=== PATIENT | female | born 1985 | race Caucasian/White ===

== ENCOUNTER 2016-11-09 15:49 | Emergency (ER) | payer OTHER ==
[~2016-11-09 15:49] MED LIST: ABILIFY10 MG PO; FLUOXETINE HCL40 MG PO; HYDROXYZINE HCL50 MG PO; NEXIUM40 MG PO; REQUIP1 MG PO
[2016-11-09 16:37] LABS: BILIRUBIN 2+ mg/dL (NEGATIVE); BLOOD NEGATIVE Ery/uL (NEGATIVE); CLARITY CLEAR (CLEAR); COLOR YELLOW (YELLOW); GLUCOSE (U) 3+ mg/dL (NORMAL); KETONE (U) 3+ (LARGE) mg/dL (NEGATIVE); LEUKOCYTES NEGATIVE Leu/uL (NEGATIVE); NITRITE NEGATIVE (NEGATIVE); PROTEIN NEGATIVE (NEGATIVE); UROBILINOGEN 0.2 mg/dL (0.2-1.0); pH 5.5 (5.0-9.0)
[2016-11-09 16:45] LABS: BACTERIA 1+; URINARY RBC RARE
[2016-11-09 16:53] LABS: ALBUMIN 4.4 g/dL (3.5-5.0); BILIRUBIN - TOTAL 0.3 mg/dL (0.1-1.0); CREATININE 1.3 mg/dL (0.5-1.0); GLOBULIN (CALCULATION) 2.3 g/dL (2.2-4.2); POTASSIUM 4.2 mmol/L (3.5-5.1); TOTAL PROTEIN 6.7 g/dL (6.4-8.3)
[2016-11-09 16:54] LABS: BASOPHIL 0.5 % (0-2); EOSINOPHIL 0.5 % (0-5); HCT 34.3 % (37.0-47.0); HGB 12.5 g/dl (12.5-16.0); LYMPHOCYTE 22.9 % (15-48); MCH 30.3 pg (25.0-31.0); MCHC 36.4 g/dL (32.0-36.0); MCV 83.3 fL (78.0-100.0); MONOCYTE 8.6 % (0-12); MPV 10.5 fL (6.0-9.5); NEUTROPHIL 67.5 % (41-80); PLT 282 K/uL (150-400); RBC 4.12 M/uL (4.20-5.40); RDW 12.9 % (11.5-14.0); WBC 5.8 K/uL (4.0-10.5)
== END 2016-11-09 18:24 | disposition home or self-care (01) ==
LOC: FER 15:49
PROVIDERS: Emergency Medicine
DX: E10.65 Type 1 diabetes mellitus with hyperglycemia (principal)
CPT/HCPCS: 36415; 80053; 81001; 82009; 85025

== ENCOUNTER 2020-10-10 12:32 | Emergency (ER) | payer OTHER ==
[~2020-10-10 12:32] MED LIST changes: +ABILIFY15 MG PO; +BASAGLAR K100 UNIT/1 SC; +CLEOCIN300 MG PO; +CYMBALTA 30MG C30 MG PO; +FEOSOL325 MG PO; +FLEXERIL5 MG PO; +HUMALOG 75100 UNIT/M SC; +HUMULIN R100 UNIT/2 SC; +MEDROL 4MG DOSEP4 MG PO; +NAPROXEN500 MG PO; +NEURONTIN400 MG PO; +NORVASC5 MG PO; +TOPROL XL 25MG25 MG PO; +ZOFRAN4 MG PO; +ZOFRAN4 MG SL; +ZPAK PO
[2020-10-10 13:56] LABS: BASOPHIL 0.9 % (0-2); HCT 24.7 % (37.0-47.0); HGB 7.8 g/dl (12.5-16.0); MCH 23.4 pg (25.0-31.0); MCHC 31.6 g/dL (32.0-36.0); MONOCYTE 4.7 % (0-12); MPV 10.2 fL (6.0-9.5); NEUTROPHIL 74.2 % (41-80); NRBC 0; PLT 238 K/uL (150-400); RBC 3.34 M/uL (4.20-5.40); RDW 14.8 % (11.5-14.0); WBC 5.8 K/uL (4.0-10.5)
[2020-10-10 14:00] LABS: BILIRUBIN NEGATIVE (NEGATIVE); BLOOD 2+ Ery/uL (NEGATIVE); CLARITY HAZY (CLEAR); COLOR YELLOW (YELLOW); GLUCOSE (U) 3+ mg/dL (NORMAL); LEUKOCYTES NEGATIVE Leu/uL (NEGATIVE); NITRITE NEGATIVE (NEGATIVE); PROTEIN 2+ mg/dL (NEGATIVE); UROBILINOGEN 0.2 mg/dL (0.2-1.0)
[2020-10-10 14:28] LABS: BACTERIA TRACE
[2020-10-10 14:41] LABS: CORONAVIRUS 2019 SARS-COV-2 NEGATIVE (NEGATIVE); INFLUENZA A NAA NEGATIVE (NEGATIVE)
[2020-10-10 14:42] LABS: ALBUMIN 2.4 g/dL (3.4-5.0); BILIRUBIN - TOTAL 0.2 mg/dL (0.2-1.0); BUN/CREAT RATIO (CALC) 27.4 RATIO; CREATININE 0.95 mg/dL (0.51-0.95); GLOBULIN (CALCULATION) 3.8 g/dL; TOTAL PROTEIN 6.2 g/dL (6.4-8.2)
[2020-10-10 14:52] LABS: LACTIC ACID 1.3 mmol/L (0.4-1.9)
[2020-10-10] MEDS ORDERED: BASAGLAR K100 UNIT/1 SC (17:24)
[2020-10-12 00:06] LABS: CHLAMYDIA TRACHOMATIS, NAA Negative (Negative); NEISSERIA GONORRHOEAE, NAA Negative (Negative)
== END 2020-10-10 17:39 | disposition home or self-care (01) ==
LOC: FER 12:32
PROVIDERS: Nurse Practitioner Family
DX: E11.65 Type 2 diabetes mellitus with hyperglycemia (principal); A64 Unspecified sexually transmitted disease; R06.02 Shortness of breath; R42 Dizziness and giddiness; R20.2 Paresthesia of skin; I10 Essential (primary) hypertension; Z76.0 Encounter for issue of repeat prescription; Z79.4 Long term (current) use of insulin; Z79.899 Other long term (current) drug therapy; Z20.822 Contact with and (suspected) exposure to COVID-19
CPT/HCPCS: 36415; 36600; 71275; 80053; 81001; 82728; 82803; 83036; 83605; 84145; 84484; 85025; 85379; 87088; 87491; 87591; 93005; 96372; J0696; J2405; J7030; Q9967; U0002

== ENCOUNTER 2020-11-19 09:35 | Emergency (ER) | payer OTHER ==
[2020-11-19 10:14] LABS: BASOPHIL 0.7 % (0-2); EOSINOPHIL 2.8 % (0-5); HCT 24.7 % (37.0-47.0); HGB 7.5 g/dl (12.5-16.0); LYMPHOCYTE 14.2 % (15-48); MCH 22.2 pg (25.0-31.0); MCHC 30.4 g/dL (32.0-36.0); MCV 73.1 fL (78.0-100.0); MONOCYTE 4.5 % (0-12); MPV 9.8 fL (6.0-9.5); NEUTROPHIL 77.5 % (41-80); NRBC 0; PLT 289 K/uL (150-400); RBC 3.38 M/uL (4.20-5.40); RDW 16.6 % (11.5-14.0); WBC 6.9 K/uL (4.0-10.5)
[2020-11-19 10:33] LABS: ALBUMIN 2.4 g/dL (3.4-5.0); BILIRUBIN - TOTAL 0.2 mg/dL (0.2-1.0); BUN/CREAT RATIO (CALC) 23.5 RATIO; CREATININE 1.02 mg/dL (0.51-0.95); GLOBULIN (CALCULATION) 4.2 g/dL; POTASSIUM 4.3 mmol/L (3.5-5.1); TOTAL PROTEIN 6.6 g/dL (6.4-8.2)
== END 2020-11-19 13:17 | disposition home or self-care (01) ==
LOC: FER 09:35
PROVIDERS: Emergency Medicine
DX: E10.649 Type 1 diabetes mellitus with hypoglycemia without coma (principal); D50.9 Iron deficiency anemia, unspecified
CPT/HCPCS: 36415; 80053; 85025

== ENCOUNTER 2020-12-03 12:57 | Emergency (ER) | payer OTHER ==
[2020-12-03 13:33] LABS: BASOPHIL 1.1 % (0-2); HCT 22.8 % (37.0-47.0); HGB 7.4 g/dl (12.5-16.0); LYMPHOCYTE 15.6 % (15-48); MCH 23.1 pg (25.0-31.0); MCHC 32.5 g/dL (32.0-36.0); MONOCYTE 6.8 % (0-12); MPV 9.9 fL (6.0-9.5); NEUTROPHIL 74.2 % (41-80); NRBC 0; PLT 331 K/uL (150-400); RBC 3.21 M/uL (4.20-5.40); RDW 16.9 % (11.5-14.0); WBC 6.6 K/uL (4.0-10.5)
[2020-12-03 13:53] LABS: ALBUMIN 2.6 g/dL (3.4-5.0); BILIRUBIN - TOTAL 0.3 mg/dL (0.2-1.0); BUN/CREAT RATIO (CALC) 20.8 RATIO; CREATININE 1.59 mg/dL (0.51-0.95); GLOBULIN (CALCULATION) 3.6 g/dL; POTASSIUM 5.1 mmol/L (3.5-5.1); TOTAL PROTEIN 6.2 g/dL (6.4-8.2)
== END 2020-12-03 19:29 | disposition home or self-care (01) ==
LOC: FER 12:57
PROVIDERS: Emergency Medicine
DX: I95.1 Orthostatic hypotension (principal); D50.9 Iron deficiency anemia, unspecified; E10.9 Type 1 diabetes mellitus without complications; I10 Essential (primary) hypertension; Z79.899 Other long term (current) drug therapy; Z79.4 Long term (current) use of insulin
CPT/HCPCS: 36415; 36430; 36600; 71045; 80053; 82140; 82803; 85025; 86850; 86900; 86901; 86922; 93005; J7030; J7050; P9016

== ENCOUNTER 2020-12-20 09:29 | Emergency (ER) | payer OTHER ==
[2020-12-20 10:08] LABS: BASOPHIL 1.7 % (0-2); EOSINOPHIL 2.7 % (0-5); HCT 28.4 % (37.0-47.0); HGB 9.4 g/dl (12.5-16.0); LYMPHOCYTE 24.1 % (15-48); MCH 24.7 pg (25.0-31.0); MCHC 33.1 g/dL (32.0-36.0); MCV 74.7 fL (78.0-100.0); MONOCYTE 5.1 % (0-12); MPV 10.3 fL (6.0-9.5); NEUTROPHIL 66.2 % (41-80); NRBC 0; PLT 329 K/uL (150-400); RDW 17.4 % (11.5-14.0); WBC 4.7 K/uL (4.0-10.5)
[2020-12-20 10:19] LABS: ALBUMIN 2.8 g/dL (3.4-5.0); BILIRUBIN - TOTAL 0.3 mg/dL (0.2-1.0); BUN/CREAT RATIO (CALC) 18.7 RATIO; CREATININE 1.39 mg/dL (0.51-0.95); GLOBULIN (CALCULATION) 4.3 g/dL; POTASSIUM 3.8 mmol/L (3.5-5.1); TOTAL PROTEIN 7.1 g/dL (6.4-8.2)
[2020-12-20 15:20] LABS: BILIRUBIN NEGATIVE (NEGATIVE); BLOOD NEGATIVE Ery/uL (NEGATIVE); CLARITY CLEAR (CLEAR); COLOR YELLOW (YELLOW); GLUCOSE (U) 3+ mg/dL (NORMAL); LEUKOCYTES NEGATIVE Leu/uL (NEGATIVE); NITRITE NEGATIVE (NEGATIVE); PROTEIN 2+ mg/dL (NEGATIVE); SPECIFIC GRAVITY >=1.030 (1.001-1.030); UROBILINOGEN 0.2 mg/dL (0.2-1.0); pH 5.5 (5.0-9.0)
[2020-12-20 15:33] LABS: AMORPHOUS URATES CRYSTALS TRACE; BACTERIA TRACE
[2020-12-21] MEDS ORDERED: BUSPIRONE HCL10 MG PO (17:26)
[2020-12-21] MEDS ORDERED: DULOXETINE HCL60 MG PO (17:27)
[2020-12-21] MEDS ORDERED: ELAVIL50 MG PO (21:47)
[2020-12-21] MEDS ORDERED: LATUDA20 MG PO (23:37)
== END 2020-12-20 15:57 | disposition home or self-care (01) ==
LOC: FER 09:29
PROVIDERS: Emergency Medicine
DX: I95.1 Orthostatic hypotension (principal); E11.9 Type 2 diabetes mellitus without complications; Z91.81 History of falling
CPT/HCPCS: 36415; 80053; 81001; 85025; J7030; J7040

== ENCOUNTER 2020-12-21 15:43 | Day surgery (SDCO) | payer OTHER ==
[2020-12-21] MEDS ORDERED: BUSPIRONE HCL10 MG PO (17:26)
[2020-12-21] MEDS ORDERED: DULOXETINE HCL60 MG PO (17:27)
[2020-12-21 17:37] LABS: BUN/CREAT RATIO (CALC) 17.4 RATIO; CREATININE 1.09 mg/dL (0.51-0.95); MAGNESIUM 1.8 mg/dL (1.8-2.4); POTASSIUM 4.4 mmol/L (3.5-5.1)
[2020-12-21 19:32] LABS: BILIRUBIN NEGATIVE (NEGATIVE); BLOOD 2+ Ery/uL (NEGATIVE); COLOR YELLOW (YELLOW); GLUCOSE (U) 3+ mg/dL (NORMAL); LEUKOCYTES NEGATIVE Leu/uL (NEGATIVE); NITRITE NEGATIVE (NEGATIVE); PROTEIN 2+ mg/dL (NEGATIVE); UROBILINOGEN 0.2 mg/dL (0.2-1.0); pH 5.5 (5.0-9.0)
[2020-12-21 19:33] LABS: CLARITY HAZY (CLEAR)
[2020-12-21 19:39] LABS: BACTERIA 4+; HCG (URINE) SCREEN NEGATIVE (NEGATIVE); SQUAMOUS EPITHELIAL CELLS RARE
[2020-12-21] MEDS ORDERED: ELAVIL50 MG PO (21:47)
[2020-12-21] MEDS ORDERED: LATUDA20 MG PO (23:37)
[2020-12-22] MEDS ORDERED: LEVAQUIN500 MG PO (13:56)
[2020-12-22] MEDS ORDERED: BASAGLAR K100 UNIT/1 SC (14:00)
[2020-12-22] MEDS ORDERED: INSULIN LI100 UNIT/2 SC (14:00)
== END 2020-12-22 15:00 | disposition home or self-care (01) ==
LOC: FTCU 15:43
PROVIDERS: ADMIT Internal Medicine
DX: I95.1 Orthostatic hypotension (principal); N39.0 Urinary tract infection, site not specified; E11.40 Type 2 diabetes mellitus with diabetic neuropathy, unspecified; N17.9 Acute kidney failure, unspecified; F41.9 Anxiety disorder, unspecified; F32.9 Major depressive disorder, single episode, unspecified; Z20.822 Contact with and (suspected) exposure to COVID-19; Z79.4 Long term (current) use of insulin
CPT/HCPCS: 36415; 80048; 81001; 82962; 83036; 83735; 84703; 87076; 87088; 87186; G0378; J0696; J7030; U0002

== ENCOUNTER 2021-01-03 15:26 | Emergency (ER) | payer OTHER ==
[~2021-01-03 15:26] MED LIST changes: +BUSPIRONE HCL10 MG PO; +DULOXETINE HCL60 MG PO; +ELAVIL50 MG PO; +INSULIN LI100 UNIT/2 SC; +LATUDA20 MG PO; +LEVAQUIN500 MG PO
[2021-01-03 16:21] LABS: EOSINOPHIL 2.7 % (0-5); HCT 28.3 % (37.0-47.0); HGB 9.8 g/dl (12.5-16.0); LYMPHOCYTE 28.9 % (15-48); MCH 26.1 pg (25.0-31.0); MCHC 34.6 g/dL (32.0-36.0); MCV 75.3 fL (78.0-100.0); MPV 9.7 fL (6.0-9.5); NEUTROPHIL 59.2 % (41-80); NRBC 0; PLT 238 K/uL (150-400); RBC 3.76 M/uL (4.20-5.40); WBC 4.8 K/uL (4.0-10.5)
[2021-01-03 16:35] LABS: ALBUMIN 3.1 g/dL (3.4-5.0); BILIRUBIN - TOTAL 0.3 mg/dL (0.2-1.0); BUN/CREAT RATIO (CALC) 15.2 RATIO; CREATININE 1.65 mg/dL (0.51-0.95); GLOBULIN (CALCULATION) 4.3 g/dL; POTASSIUM 4.3 mmol/L (3.5-5.1); TOTAL PROTEIN 7.4 g/dL (6.4-8.2)
== END 2021-01-03 18:49 | disposition home or self-care (01) ==
LOC: FER 15:26
PROVIDERS: Nurse Practitioner Family
DX: E10.649 Type 1 diabetes mellitus with hypoglycemia without coma (principal); E86.0 Dehydration; I10 Essential (primary) hypertension
CPT/HCPCS: 36415; 80053; 85025; 99283; J7030

== ENCOUNTER 2021-01-10 11:44 | Emergency (ER) | payer OTHER ==
[2021-01-10 13:32] LABS: BASOPHIL 1.1 % (0-2); EOSINOPHIL 3.7 % (0-5); HCT 30.4 % (37.0-47.0); HGB 10.6 g/dl (12.5-16.0); LYMPHOCYTE 25.3 % (15-48); MCH 26.8 pg (25.0-31.0); MCHC 34.9 g/dL (32.0-36.0); MPV 9.8 fL (6.0-9.5); NEUTROPHIL 64.7 % (41-80); NRBC 0; PLT 254 K/uL (150-400); RBC 3.95 M/uL (4.20-5.40); RDW 17.2 % (11.5-14.0); WBC 5.4 K/uL (4.0-10.5)
[2021-01-10 14:03] LABS: ALBUMIN 3.1 g/dL (3.4-5.0); BILIRUBIN - TOTAL 0.4 mg/dL (0.2-1.0); BUN/CREAT RATIO (CALC) 22.3 RATIO; CREATININE 1.12 mg/dL (0.51-0.95); GLOBULIN (CALCULATION) 4.3 g/dL; POTASSIUM 4.8 mmol/L (3.5-5.1); TOTAL PROTEIN 7.4 g/dL (6.4-8.2)
[2021-01-10] MEDS ORDERED: ZOFRAN4 M1 PO (16:53)
== END 2021-01-10 17:17 | disposition home or self-care (01) ==
LOC: FER 11:44
PROVIDERS: Emergency Medicine
DX: R11.2 Nausea with vomiting, unspecified (principal); E10.9 Type 1 diabetes mellitus without complications; I10 Essential (primary) hypertension; Z98.84 Bariatric surgery status
CPT/HCPCS: 36415; 80053; 85025; J1885; J2405; J7030

== ENCOUNTER 2021-01-14 14:34 | Inpatient (IN) | payer OTHER ==
[~2021-01-14 14:34] MED LIST changes: +ZOFRAN4 M1 PO
[2021-01-14 15:40] LABS: EOSINOPHIL 1.6 % (0-5); HCT 27.8 % (37.0-47.0); HGB 9.8 g/dl (12.5-16.0); LYMPHOCYTE 18.8 % (15-48); MCH 27.1 pg (25.0-31.0); MCHC 35.3 g/dL (32.0-36.0); MCV 76.8 fL (78.0-100.0); MONOCYTE 3.8 % (0-12); MPV 10.1 fL (6.0-9.5); NEUTROPHIL 74.5 % (41-80); NRBC 0; PLT 307 K/uL (150-400); RBC 3.62 M/uL (4.20-5.40); RDW 16.1 % (11.5-14.0); WBC 7.3 K/uL (4.0-10.5)
[2021-01-14 16:04] LABS: ALBUMIN 2.7 g/dL (3.4-5.0); BILIRUBIN - TOTAL 0.2 mg/dL (0.2-1.0); BUN/CREAT RATIO (CALC) 18.4 RATIO; CREATININE 1.14 mg/dL (0.51-0.95); GLOBULIN (CALCULATION) 4.3 g/dL; POTASSIUM 4.3 mmol/L (3.5-5.1)
[2021-01-15 04:16] LABS: BILIRUBIN NEGATIVE (NEGATIVE); BLOOD TRACE-INTACT Ery/uL (NEGATIVE); CLARITY CLEAR (CLEAR); COLOR YELLOW (YELLOW); GLUCOSE (U) 1+ mg/dL (NORMAL); LEUKOCYTES NEGATIVE Leu/uL (NEGATIVE); NITRITE NEGATIVE (NEGATIVE); PROTEIN 3+ mg/dL (NEGATIVE); SPECIFIC GRAVITY >=1.030 (1.001-1.030); UROBILINOGEN 0.2 mg/dL (0.2-1.0); pH 5.5 (5.0-9.0)
[2021-01-15 04:24] LABS: BACTERIA 1+; SQUAMOUS EPITHELIAL CELLS >50
[2021-01-15 05:53] LABS: HCT 24.5 % (37.0-47.0); HGB 8.6 g/dl (12.5-16.0); MCH 27.1 pg (25.0-31.0); MCHC 35.1 g/dL (32.0-36.0); MCV 77.3 fL (78.0-100.0); MPV 9.9 fL (6.0-9.5); RBC 3.17 M/uL (4.20-5.40); RDW 16.2 % (11.5-14.0); WBC 5.4 K/uL (4.0-10.5)
[2021-01-15 06:29] LABS: CREATININE 1.11 mg/dL (0.51-0.95); POTASSIUM 4.4 mmol/L (3.5-5.1)
--- NOTE | 2021-01-15 08:40 | NUR ---
BP 148/[address] SERRA, NO NEW ORDERS. PT HAVING HEADACHE, TYLENOL 650MG GIVEN. GLUCOSE THIS AM 202, 4 UNITS INSULIN GIVEN. PT DRINKING [place], EDUCATED ON HIGH SUGAR INTAKE IN [place]. PT NONCOMPLIANT WITH DIET REGULATIONS. DR. SERRA AWARE.
--- NOTE | 2021-01-15 10:51 | NUR ---
ORTHOSTATIC VITAL SIGNS 01/15 1030 LAYING- 205/119 SITTING- 168/107 STANDING- 125/85 DR. SERRA NOTIFIED, AMLODIPINE 2.5 MG PO QDAY ORDERED IN RESPONSE.
[2021-01-15] MEDS ORDERED: KEFLEX250 MG PO (10:57)
[2021-01-15] MEDS ORDERED: ZOFRAN4 M1 PO (10:57)
--- NOTE | 2021-01-15 12:47 | NUR ---
Discharge orders by Dr. Bates. Dr. Bates aware of increased BP on discharge. Pt educated on follow up appointments for PCP and cardiology. Pt educated on new medications of zofran and keflex. PIV removed and pt transported down to front exit via wheelchair to family vehicle. Pt has no concerns at this time and verbalizes understanding.
--- NOTE | 2021-01-15 12:56 | NUR ---
01/15/21 Ms. Almodovar, 1 of her 3 children, and boyfriend live with her grandparents. - There are no discharge planning needs.
[2021-01-15] MEDS ORDERED: NORVASC2.5 MG PO (13:00)
== END 2021-01-15 13:00 | disposition home or self-care (01) | DRG 758 ==
LOC: FER 14:34 → FTCU 16:36
PROVIDERS: Emergency Medicine; ADMIT Hospitalist
DX: A59.00 Urogenital trichomoniasis, unspecified (principal); Z16.23 Resistance to quinolones and fluoroquinolones; E10.9 Type 1 diabetes mellitus without complications; I95.1 Orthostatic hypotension; F32.9 Major depressive disorder, single episode, unspecified; F41.9 Anxiety disorder, unspecified; G47.00 Insomnia, unspecified; E86.0 Dehydration; Z20.822 Contact with and (suspected) exposure to COVID-19; Z90.49 Acquired absence of other specified parts of digestive tract; Z98.51 Tubal ligation status; Z98.84 Bariatric surgery status; Z91.14 Patient's other noncompliance with medication regimen
CPT/HCPCS: 36415; 36600; 80048; 80053; 81001; 82009; 82803; 82962; 83605; 83690; 85025; J0696; J0780; J2405; J7030; U0002

== ENCOUNTER 2021-01-16 20:08 | Emergency (ER) | payer OTHER ==
[~2021-01-16 20:08] MED LIST changes: +KEFLEX250 MG PO; +NORVASC2.5 MG PO
[2021-01-16 21:01] LABS: BASOPHIL 1.5 % (0-2); EOSINOPHIL 3.8 % (0-5); HCT 26.4 % (37.0-47.0); HGB 9.4 g/dl (12.5-16.0); LYMPHOCYTE 19.5 % (15-48); MCH 27.4 pg (25.0-31.0); MCHC 35.6 g/dL (32.0-36.0); MPV 9.7 fL (6.0-9.5); NEUTROPHIL 67.9 % (41-80); NRBC 0; PLT 307 K/uL (150-400); RBC 3.43 M/uL (4.20-5.40); RDW 15.7 % (11.5-14.0)
[2021-01-16 21:12] LABS: INR 0.94 (0.9-1.2); PROTHROMBIN TIME 11.9 SECONDS (11.4-13.6); PTT 26.2 SECONDS (22.2-34.7)
[2021-01-16 21:22] LABS: RETICULOCYTE COUNT 2.8 % (1.0-2.0)
[2021-01-16 21:33] LABS: ALBUMIN 2.2 g/dL (3.4-5.0); ALKALINE PHOSHATASE 144 U/L (46-116); ALT 21 U/L (14-59); AST 16 U/L (15-37); BILIRUBIN - TOTAL 0.2 mg/dL (0.2-1.0); BUN 21 mg/dL (7-18); BUN/CREAT RATIO (CALC) 16.7 RATIO; CHLORIDE 100 mmol/L (98-107); CO2 (BICARBONATE) 26 mmol/L (21-32); CPK 24 U/L (26-192); CREATININE 1.26 mg/dL (0.51-0.95); GLOBULIN (CALCULATION) 3.8 g/dL; GLUCOSE 315 mg/dL (74-106); MAGNESIUM 1.9 mg/dL (1.8-2.4); POTASSIUM 4.7 mmol/L (3.5-5.1)
[2021-01-16 21:45] LABS: C-REACTIVE PROTEIN < 0.20 mg/dL (<=0.90)
[2021-01-17 00:03] LABS: BILIRUBIN NEGATIVE (NEGATIVE); BLOOD 3+ Ery/uL (NEGATIVE); CLARITY CLOUDY (CLEAR); GLUCOSE (U) 3+ mg/dL (NORMAL); LEUKOCYTES NEGATIVE Leu/uL (NEGATIVE); NITRITE NEGATIVE (NEGATIVE); PROTEIN 3+ mg/dL (NEGATIVE); SPECIFIC GRAVITY >=1.030 (1.001-1.030); UROBILINOGEN 0.2 mg/dL (0.2-1.0); pH 5.5 (5.0-9.0)
[2021-01-17 00:04] LABS: COLOR AMBER (YELLOW)
[2021-01-17 00:10] LABS: BACTERIA TRACE; SQUAMOUS EPITHELIAL CELLS RARE; URINARY RBC TNTC; URINARY WBC RARE
== END 2021-01-17 01:03 | disposition home or self-care (01) ==
LOC: FER 20:08
PROVIDERS: Emergency Medicine
DX: I95.1 Orthostatic hypotension (principal); E10.40 Type 1 diabetes mellitus with diabetic neuropathy, unspecified
CPT/HCPCS: 36415; 80053; 81001; 82550; 82728; 83540; 83605; 83735; 84145; 84443; 84484; 85025; 85610; 85730; 86140; 93005; J7030

== ENCOUNTER 2021-04-03 04:20 | Emergency (ER) | payer OTHER ==
[2021-04-03] MEDS ORDERED: ETODOLAC300 MG PO (06:20)
[2021-04-03] MEDS ORDERED: PERCOCET 5-3251 EACH PO (06:20)
== END 2021-04-03 06:30 | disposition home or self-care (01) ==
LOC: FER 04:20
DX: M25.552 Pain in left hip (principal); E11.40 Type 2 diabetes mellitus with diabetic neuropathy, unspecified; Z79.4 Long term (current) use of insulin; Z90.49 Acquired absence of other specified parts of digestive tract
CPT/HCPCS: 73502; J1040; J1885

== ENCOUNTER 2021-04-08 09:44 | Emergency (ER) | payer OTHER ==
[~2021-04-08 09:44] MED LIST changes: +ETODOLAC300 MG PO; +PERCOCET 5-3251 EACH PO
[2021-04-08 11:01] LABS: ALBUMIN 2.7 g/dL (3.4-5.0); BILIRUBIN - TOTAL 0.4 mg/dL (0.2-1.0); BUN/CREAT RATIO (CALC) 21.6 RATIO; CREATININE 1.39 mg/dL (0.51-0.95); GLOBULIN (CALCULATION) 4.5 g/dL; POTASSIUM 4.7 mmol/L (3.5-5.1); TOTAL PROTEIN 7.2 g/dL (6.4-8.2)
[2021-04-08 11:20] LABS: BASOPHIL 1.1 % (0-2); EOSINOPHIL 0.9 % (0-5); HCT 32.9 % (37.0-47.0); HGB 11.3 g/dl (12.5-16.0); LYMPHOCYTE 14.3 % (15-48); MCH 27.6 pg (25.0-31.0); MCHC 34.3 g/dL (32.0-36.0); MCV 80.4 fL (78.0-100.0); MONOCYTE 4.3 % (0-12); MPV 9.9 fL (6.0-9.5); NEUTROPHIL 78.9 % (41-80); NRBC 0; PLT 298 K/uL (150-400); RBC 4.09 M/uL (4.20-5.40); RDW 12.4 % (11.5-14.0); WBC 7.8 K/uL (4.0-10.5)
[2021-04-08 11:56] LABS: BILIRUBIN NEGATIVE (NEGATIVE); BLOOD 1+ Ery/uL (NEGATIVE); CLARITY CLEAR (CLEAR); COLOR YELLOW (YELLOW); GLUCOSE (U) 3+ mg/dL (NORMAL); LEUKOCYTES NEGATIVE Leu/uL (NEGATIVE); NITRITE NEGATIVE (NEGATIVE); PROTEIN 2+ mg/dL (NEGATIVE); SPECIFIC GRAVITY 1.015 (1.001-1.030); UROBILINOGEN 0.2 mg/dL (0.2-1.0)
[2021-04-08 12:30] LABS: BACTERIA TRACE; URINARY RBC RARE; URINARY WBC RARE
== END 2021-04-08 13:07 | disposition home or self-care (01) ==
LOC: FER 09:44
PROVIDERS: Emergency Medicine
DX: R11.2 Nausea with vomiting, unspecified (principal); E10.65 Type 1 diabetes mellitus with hyperglycemia; Z20.822 Contact with and (suspected) exposure to COVID-19
CPT/HCPCS: 36415; 80053; 81001; 85025; J2405; J7030; U0002

== ENCOUNTER 2021-04-13 09:13 | Emergency (ER) | payer OTHER ==
[2021-04-13] MEDS ORDERED: NAPROXEN500 MG PO (12:08)
== END 2021-04-13 12:24 | disposition home or self-care (01) ==
LOC: FER 09:13
DX: M25.552 Pain in left hip (principal); E11.9 Type 2 diabetes mellitus without complications; Z79.4 Long term (current) use of insulin; Z90.49 Acquired absence of other specified parts of digestive tract
CPT/HCPCS: 99283

== ENCOUNTER 2021-04-20 00:42 | Inpatient (IN) | payer OTHER ==
[~2021-04-20] VITALS: Ht 160 cm; Wt 80.0 kg
[2021-04-20 02:07] LABS: BILIRUBIN NEGATIVE (NEGATIVE); BLOOD TRACE-INTACT Ery/uL (NEGATIVE); CLARITY CLEAR (CLEAR); COLOR YELLOW (YELLOW); GLUCOSE (U) TRACE mg/dL (NORMAL); LEUKOCYTES NEGATIVE Leu/uL (NEGATIVE); NITRITE NEGATIVE (NEGATIVE); PROTEIN 2+ mg/dL (NEGATIVE); SPECIFIC GRAVITY >=1.030 (1.001-1.030); UROBILINOGEN 0.2 mg/dL (0.2-1.0); pH 5.5 (5.0-9.0)
[2021-04-20 02:07] LABS: BASOPHIL 0.5 % (0-2); EOSINOPHIL 1.9 % (0-5); HCT 23.3 % (37.0-47.0); HGB 7.8 g/dl (12.5-16.0); LYMPHOCYTE 9.3 % (15-48); MCH 26.9 pg (25.0-31.0); MCHC 33.5 g/dL (32.0-36.0); MCV 80.3 fL (78.0-100.0); MONOCYTE 6.1 % (0-12); MPV 9.7 fL (6.0-9.5); NEUTROPHIL 81.9 % (41-80); NRBC 0; PLT 333 K/uL (150-400); RDW 12.1 % (11.5-14.0); WBC 11.9 K/uL (4.0-10.5)
[2021-04-20 02:16] LABS: BACTERIA 1+
[2021-04-20 02:17] LABS: AMORPHOUS URATES CRYSTALS TRACE
[2021-04-20 02:25] LABS: ALBUMIN 1.9 g/dL (3.4-5.0); ALKALINE PHOSHATASE 114 U/L (46-116); ALT 16 U/L (14-59); AST 17 U/L (15-37); BILIRUBIN - TOTAL 0.2 mg/dL (0.2-1.0); BUN 33 mg/dL (7-18); BUN/CREAT RATIO (CALC) 23.9 RATIO; C-REACTIVE PROTEIN >18.00 mg/dL (<=0.90); CHLORIDE 102 mmol/L (98-107); CO2 (BICARBONATE) 25 mmol/L (21-32); CREATININE 1.38 mg/dL (0.51-0.95); GLUCOSE 115 mg/dL (74-106); TOTAL PROTEIN 6.9 g/dL (6.4-8.2)
[2021-04-20] MEDS ORDERED: VRAYLAR1.5 MG PO (09:37)
[2021-04-20] MEDS ORDERED: ADMELOG SO100 UNIT/1 IJ (09:40)
--- NOTE | 2021-04-20 10:26 | NUR ---
04/20/21 Please consider full admit or discharge. Thank You!
[2021-04-20 14:43] LABS: RETICULOCYTE COUNT 1.6 % (1.0-2.0)
[2021-04-20 15:24] LABS: FOLIC ACID (SERUM) 19.6 ng/mL (8.6-58.9)
--- NOTE | 2021-04-21 04:56 | NUR ---
THIS NURSE ENTERED ROOM DUE TO IV BEEPING. PT WAS VERY PALE, WITH SHALLOW BREATHING. COULD NOT AROUSE PATIENT. SEVERAL HARD STERNAL RUBS WERE NECESSARY TO AROUSE PATIENT, BUT PATIENT COULD NOT STAY AWAKE MORE THAN A COUPLE SECONDS. BLOOD SUGAR CHECKED 204, SOFTWARE DESIGN MANAGER CALLED TO ROOM. BLOOD PRESSURE AND PULSE STABLE, INITIAL O2 LEVEL IN 70S. 0.4MG NARCAN GIVEN IVP. PT BECAME AROUSABLE, COLOR IMPROVED, AND PATIENT WAS ABLE TO MAINTAIN O2 SATURATION 95% AND ABOVE ON ROOM AIR. THIS NURSE HAS NOT GIVEN ANY NARCOTIC OR PAIN MEDICATIONS ALL SHIFT. PT DID HAVE VISITOR THROUGH NIGHT, BUT NO VISITOR AT BEDSIDE DURING EVENTS.
[2021-04-21 06:42] LABS: BASOPHIL 0.3 % (0-2); EOSINOPHIL 0.6 % (0-5); HCT 20.4 % (37.0-47.0); HGB 6.7 g/dl (12.5-16.0); LYMPHOCYTE 5.2 % (15-48); MCH 26.8 pg (25.0-31.0); MCHC 32.8 g/dL (32.0-36.0); MCV 81.6 fL (78.0-100.0); MONOCYTE 4.5 % (0-12); MPV 9.7 fL (6.0-9.5); NEUTROPHIL 88.9 % (41-80); NRBC 0; PLT 266 K/uL (150-400); RDW 12.5 % (11.5-14.0); WBC 10.6 K/uL (4.0-10.5)
[2021-04-21 07:10] LABS: BUN 31 mg/dL (7-18); BUN/CREAT RATIO (CALC) 16.7 RATIO; C-REACTIVE PROTEIN >18.00 mg/dL (<=0.90); CHLORIDE 104 mmol/L (98-107); CO2 (BICARBONATE) 24 mmol/L (21-32); CREATININE 1.86 mg/dL (0.51-0.95); GLUCOSE 226 mg/dL (74-106); POTASSIUM 5.1 mmol/L (3.5-5.1)
[2021-04-21 09:19] LABS: INR 1.09 (0.9-1.2); PROTHROMBIN TIME 13.5 SECONDS (11.8-13.4)
[2021-04-21 09:20] LABS: PTT 37.9 SECONDS (24.4-34.7)
[2021-04-21] MEDS ORDERED: AUGMENTIN 875-1 EACH PO (15:47)
[2021-04-21] MEDS ORDERED: NORCO 5-325 TA1 EACH PO (15:47)
--- NOTE | 2021-04-21 16:55 | NUR ---
1650 IV REMOVED, PATIENT GIVEN D/C INSTRUCTIONS AND VERBALIZED UNDERSTANDING.
== END 2021-04-21 16:58 | disposition home or self-care (01) | DRG 908 ==
LOC: FER 00:42 → FMS 08:11
PROVIDERS: Emergency Medicine; Surgery; ADMIT Internal Medicine
PROC: 0KB Muscles, Excision (ICD-10-PCS; 2021-04-21)
PROC: 30233N1 Transfusion of Nonautologous Red Blood Cells into Peripheral Vein, Percutaneous Approach (ICD-10-PCS; 2021-04-21)
PROC: 0K9G0ZZ Drainage of Left Trunk Muscle, Open Approach (ICD-10-PCS; principal; 2021-04-21 11:00)
DX: T85.72XA Infection and inflammatory reaction due to insulin pump, initial encounter (principal); M60.08 Infective myositis, other site; T85.614A Breakdown (mechanical) of insulin pump, initial encounter; E10.65 Type 1 diabetes mellitus with hyperglycemia; D50.9 Iron deficiency anemia, unspecified; E10.42 Type 1 diabetes mellitus with diabetic polyneuropathy; I10 Essential (primary) hypertension; F31.9 Bipolar disorder, unspecified; F41.9 Anxiety disorder, unspecified; Z20.822 Contact with and (suspected) exposure to COVID-19; B95.61 Methicillin susceptible Staphylococcus aureus infection as the cause of diseases classified elsewhere; Z90.49 Acquired absence of other specified parts of digestive tract; Z90.3 Acquired absence of stomach [part of]; Z98.51 Tubal ligation status; Z79.899 Other long term (current) drug therapy; Z87.440 Personal history of urinary (tract) infections; Y83.1 Surgical operation with implant of artificial internal device as the cause of abnormal reaction of the patient, or of later complication, without mention of misadventure at the time of the procedure
CPT/HCPCS: 36415; 36430; 71101; 80048; 80053; 81001; 82607; 82746; 83036; 83540; 83550; 83605; 83735; 85025; 85610; 85730; 86140; 86850; 86900; 86901; 86922; 87070; 87075; 87077; 87186; 87205; 93971; J2001; J2250; J2310; J2543; J2704; J2916; J3010; J3370; J7030; J7050; J7120; P9016; Q9967; U0002

== ENCOUNTER 2021-05-02 01:35 | Emergency (ER) | payer OTHER ==
[~2021-05-02 01:35] MED LIST changes: +ADMELOG SO100 UNIT/1 IJ; +AUGMENTIN 875-1 EACH PO; +NORCO 5-325 TA1 EACH PO; +VRAYLAR1.5 MG PO
[2021-05-02 02:36] LABS: BASOPHIL 1.2 % (0-2); EOSINOPHIL 4.4 % (0-5); HCT 25.8 % (37.0-47.0); HGB 8.6 g/dl (12.5-16.0); LYMPHOCYTE 14.2 % (15-48); MCHC 33.3 g/dL (32.0-36.0); MCV 80.9 fL (78.0-100.0); MONOCYTE 6.7 % (0-12); MPV 9.4 fL (6.0-9.5); NEUTROPHIL 73.2 % (41-80); NRBC 0; PLT 239 K/uL (150-400); RBC 3.19 M/uL (4.20-5.40); RDW 14.1 % (11.5-14.0); WBC 5.9 K/uL (4.0-10.5)
[2021-05-02 02:49] LABS: BILIRUBIN NEGATIVE (NEGATIVE); BLOOD 1+ Ery/uL (NEGATIVE); CLARITY CLEAR (CLEAR); COLOR YELLOW (YELLOW); GLUCOSE (U) NORMAL (NORMAL); LEUKOCYTES NEGATIVE Leu/uL (NEGATIVE); NITRITE NEGATIVE (NEGATIVE); PROTEIN 3+ mg/dL (NEGATIVE); SPECIFIC GRAVITY 1.025 (1.001-1.030); UROBILINOGEN 0.2 mg/dL (0.2-1.0)
[2021-05-02 02:52] LABS: ECSTASY (MDMA) NEGATIVE (NEGATIVE); MARIJUANA (THC) POSITIVE (NEGATIVE); METHADONE NEGATIVE (NEGATIVE); OPIATES NEGATIVE (NEGATIVE)
[2021-05-02 02:53] LABS: AMPHETAMINES POSITIVE (NEGATIVE); BARBITURATES NEGATIVE (NEGATIVE); OXYCODONE NEGATIVE (NEGATIVE)
[2021-05-02 02:54] LABS: ALKALINE PHOSHATASE 121 U/L (46-116); ALT 11 U/L (14-59); AST 18 U/L (15-37); BILIRUBIN - TOTAL 0.2 mg/dL (0.2-1.0); BUN 27 mg/dL (7-18); BUN/CREAT RATIO (CALC) 16.7 RATIO; CHLORIDE 106 mmol/L (98-107); CO2 (BICARBONATE) 27 mmol/L (21-32); CREATININE 1.62 mg/dL (0.51-0.95); GLOBULIN (CALCULATION) 4.2 g/dL; GLUCOSE 114 mg/dL (74-106); TOTAL PROTEIN 6.2 g/dL (6.4-8.2)
[2021-05-02 03:02] LABS: BACTERIA TRACE; URINARY WBC RARE
[2021-05-02 03:03] LABS: AMORPHOUS URATES CRYSTALS TRACE
[2021-05-02 12:25] LABS: BASOPHIL 0.4 % (0-2); EOSINOPHIL 0.1 % (0-5); HCT 27.1 % (37.0-47.0); HGB 8.7 g/dl (12.5-16.0); LYMPHOCYTE 4.8 % (15-48); MCH 26.9 pg (25.0-31.0); MCHC 32.1 g/dL (32.0-36.0); MCV 83.9 fL (78.0-100.0); MONOCYTE 2.3 % (0-12); MPV 9.9 fL (6.0-9.5); NRBC 0; PLT 234 K/uL (150-400); RBC 3.23 M/uL (4.20-5.40); RDW 14.1 % (11.5-14.0)
[2021-05-02 12:38] LABS: NEUTROPHIL 91.8 % (41-80); WBC 14.5 K/uL (4.0-10.5)
[2021-05-02 12:51] LABS: INR 0.98 (0.9-1.2); PROTHROMBIN TIME 12.4 SECONDS (11.8-13.4)
[2021-05-02 13:07] LABS: BILIRUBIN NEGATIVE (NEGATIVE); BLOOD 2+ Ery/uL (NEGATIVE); CLARITY HAZY (CLEAR); COLOR YELLOW (YELLOW); GLUCOSE (U) 1+ mg/dL (NORMAL); LEUKOCYTES NEGATIVE Leu/uL (NEGATIVE); NITRITE NEGATIVE (NEGATIVE); PROTEIN 3+ mg/dL (NEGATIVE); SPECIFIC GRAVITY 1.025 (1.001-1.030); UROBILINOGEN 0.2 mg/dL (0.2-1.0); pH 6.5 (5.0-9.0)
[2021-05-02 13:11] LABS: HCG (URINE) SCREEN NEGATIVE (NEGATIVE)
[2021-05-02 13:27] LABS: BACTERIA 1+; URINARY WBC RARE
[2021-05-03 06:23] LABS: BASOPHIL 0.9 % (0-2); EOSINOPHIL 1.1 % (0-5); HCT 21.8 % (37.0-47.0); HGB 7.1 g/dl (12.5-16.0); LYMPHOCYTE 16.2 % (15-48); MCH 27.2 pg (25.0-31.0); MCHC 32.6 g/dL (32.0-36.0); MCV 83.5 fL (78.0-100.0); MPV 10.3 fL (6.0-9.5); NEUTROPHIL 73.5 % (41-80); NRBC 0; PLT 202 K/uL (150-400); RBC 2.61 M/uL (4.20-5.40); RDW 14.3 % (11.5-14.0); WBC 7.5 K/uL (4.0-10.5)
[2021-05-03 06:47] LABS: RBC (FLUID) 0 RBC/uL; WBC (FLUID) 92 WBC/uL
[2021-05-03 06:55] LABS: ALBUMIN 1.7 g/dL (3.4-5.0); BILIRUBIN - TOTAL 0.4 mg/dL (0.2-1.0); BUN/CREAT RATIO (CALC) 17.5 RATIO; CREATININE 1.94 mg/dL (0.51-0.95); GLOBULIN (CALCULATION) 3.7 g/dL; POTASSIUM 5.1 mmol/L (3.5-5.1); TOTAL PROTEIN 5.4 g/dL (6.4-8.2)
[2021-05-03 07:00] LABS: CLARITY (FLUID) CLEAR; COLOR (FLUID) COLORLESS
[2021-05-03 13:09] LABS: EOSINOPHIL 0.5 % (0-5); HCT 22.7 % (37.0-47.0); HGB 7.3 g/dl (12.5-16.0); LYMPHOCYTE 13.1 % (15-48); MCH 27.5 pg (25.0-31.0); MCHC 32.2 g/dL (32.0-36.0); MCV 85.7 fL (78.0-100.0); MONOCYTE 6.7 % (0-12); MPV 10.2 fL (6.0-9.5); NEUTROPHIL 78.4 % (41-80); NRBC 0; PLT 198 K/uL (150-400); RBC 2.65 M/uL (4.20-5.40); RDW 14.4 % (11.5-14.0); WBC 9.3 K/uL (4.0-10.5)
[2021-05-03 13:25] LABS: BUN/CREAT RATIO (CALC) 17.3 RATIO; CREATININE 1.85 mg/dL (0.51-0.95); POTASSIUM 5.2 mmol/L (3.5-5.1)
[2021-05-05 13:07] LABS: LYME IGG/IGM AB <0.91 ISR (0.00-0.90)
[2021-05-07 15:09] LABS: E. CHAFFEENSIS (HME) IGG TITER Negative (Neg:<1:64); E. CHAFFEENSIS (HME) IGM TITER Negative (Neg:<1:20); HGE IGG TITER Negative (Neg:<1:64); HGE IGM TITER Negative (Neg:<1:20)
[2021-05-07 16:09] LABS: FRANCISELLA TULARENSIS IGG Negative (Negative); FRANCISELLA TULARENSIS IGM Negative (Negative)
== END 2021-05-03 20:10 | disposition other institution (70) ==
LOC: FER 01:35
PROVIDERS: Emergency Medicine; Emergency Medicine Emergency Medical Services
DX: R41.82 Altered mental status, unspecified (principal); T38.3X5A Adverse effect of insulin and oral hypoglycemic [antidiabetic] drugs, initial encounter; F15.10 Other stimulant abuse, uncomplicated; R56.9 Unspecified convulsions; E11.9 Type 2 diabetes mellitus without complications; I10 Essential (primary) hypertension; Z20.822 Contact with and (suspected) exposure to COVID-19
CPT/HCPCS: 36415; 36430; 36600; 70450; 71045; 74018; 80048; 80053; 80305; 81001; 82803; 82945; 83605; 84145; 84155; 84484; 84703; 85025; 85610; 86618; 86666; 86757; 86850; 86900; 86901; 86922; 87040; 87070; 87205; 87529; 89051; 94002; 96365; 96366; 96367; 96372; 96375; 96376; C9113; G0480; J0133; J0692; J0696; J1610; J1885; J1953; J2060; J2250; J2310; J2704; J3010; J3370; J3490; J7030; J7050; J7060; J7120; P9016; U0002

== ENCOUNTER 2021-05-20 23:09 | Emergency (ER) | payer OTHER ==
[2021-05-21 00:37] LABS: BASOPHIL 0.8 % (0-2); EOSINOPHIL 1.2 % (0-5); HCT 20.3 % (37.0-47.0); HGB 6.8 g/dl (12.5-16.0); LYMPHOCYTE 7.8 % (15-48); MCH 27.1 pg (25.0-31.0); MCHC 33.5 g/dL (32.0-36.0); MCV 80.9 fL (78.0-100.0); NRBC 0; PLT 140 K/uL (150-400); RBC 2.51 M/uL (4.20-5.40); RDW 15.5 % (11.5-14.0)
[2021-05-21 01:03] LABS: ALBUMIN 1.8 g/dL (3.4-5.0); BILIRUBIN - TOTAL 0.3 mg/dL (0.2-1.0); BUN/CREAT RATIO (CALC) 34.5 RATIO; CREATININE 1.48 mg/dL (0.51-0.95); GLOBULIN (CALCULATION) 3.5 g/dL; POTASSIUM 4.6 mmol/L (3.5-5.1); TOTAL PROTEIN 5.3 g/dL (6.4-8.2)
[2021-05-21 04:33] LABS: IRON % SATURATION 101.8 %SAT (20-50)
[2021-05-21 06:31] LABS: BUN/CREAT RATIO (CALC) 33.3 RATIO; CREATININE 1.47 mg/dL (0.51-0.95); POTASSIUM 4.2 mmol/L (3.5-5.1)
[2021-05-21 08:20] LABS: RETICULOCYTE COUNT 1.4 % (1.0-2.0)
[2021-05-21 09:12] LABS: FOLIC ACID (SERUM) 6.9 ng/mL (8.6-58.9)
[2021-05-21] MEDS ORDERED: BASAGLAR K100 UNIT/1 SC (21:41)
[2021-05-21] MEDS ORDERED: CLONIDINE HCL0.1 MG PO (21:42)
[2021-05-21] MEDS ORDERED: LOPRESSOR25 MG PO (21:42)
[2021-05-21] MEDS ORDERED: HYDRALAZINE25 MG PO (21:43)
[2021-05-21] MEDS ORDERED: VIBRAMYCIN100 MG PO (21:43)
[2021-05-22 06:13] LABS: EOSINOPHIL 2.5 % (0-5); HGB 7.9 g/dl (12.5-16.0); LYMPHOCYTE 13.1 % (15-48); MCH 27.8 pg (25.0-31.0); MCHC 34.3 g/dL (32.0-36.0); MONOCYTE 7.2 % (0-12); MPV 9.5 fL (6.0-9.5); NEUTROPHIL 75.7 % (41-80); NRBC 0; PLT 116 K/uL (150-400); RBC 2.84 M/uL (4.20-5.40); RDW 14.8 % (11.5-14.0); WBC 6.3 K/uL (4.0-10.5)
[2021-05-22 06:33] LABS: ALBUMIN 1.8 g/dL (3.4-5.0); BILIRUBIN - TOTAL 0.3 mg/dL (0.2-1.0); BUN/CREAT RATIO (CALC) 31.7 RATIO; CREATININE 1.39 mg/dL (0.51-0.95); GLOBULIN (CALCULATION) 3.3 g/dL; POTASSIUM 3.8 mmol/L (3.5-5.1); TOTAL PROTEIN 5.1 g/dL (6.4-8.2)
== END 2021-05-22 21:45 | disposition other institution (70) ==
LOC: FER 23:09
PROVIDERS: Emergency Medicine; Emergency Medicine Emergency Medical Services; Internal Medicine; Nurse Practitioner Family
DX: J81.0 Acute pulmonary edema (principal); E87.70 Fluid overload, unspecified; D64.9 Anemia, unspecified; E11.40 Type 2 diabetes mellitus with diabetic neuropathy, unspecified; E11.65 Type 2 diabetes mellitus with hyperglycemia; Z79.4 Long term (current) use of insulin
CPT/HCPCS: 36415; 36430; 36600; 71045; 80048; 80053; 82550; 82607; 82746; 82803; 83540; 83550; 83605; 83880; 84145; 84484; 85025; 86850; 86900; 86901; 86922; 87449; 93005; 96374; 96375; 96376; J1940; J2060; J2405; J3490; P9016

== ENCOUNTER 2021-06-08 01:24 | Emergency (ER) | payer OTHER ==
[~2021-06-08 01:24] MED LIST changes: +CLONIDINE HCL0.1 MG PO; +HYDRALAZINE25 MG PO; +LOPRESSOR25 MG PO; +VIBRAMYCIN100 MG PO
[2021-06-08 04:41] LABS: BASOPHIL 0.9 % (0-2); EOSINOPHIL 4.4 % (0-5); HCT 24.2 % (37.0-47.0); HGB 7.6 g/dl (12.5-16.0); LYMPHOCYTE 12.9 % (15-48); MCH 28.6 pg (25.0-31.0); MCHC 31.4 g/dL (32.0-36.0); MONOCYTE 9.4 % (0-12); MPV 10.4 fL (6.0-9.5); NRBC 0; PLT 248 K/uL (150-400); RBC 2.66 M/uL (4.20-5.40); RDW 16.9 % (11.5-14.0); WBC 5.6 K/uL (4.0-10.5)
[2021-06-08 05:09] LABS: ALBUMIN 1.9 g/dL (3.4-5.0); BILIRUBIN - TOTAL 0.2 mg/dL (0.2-1.0); CREATININE 2.33 mg/dL (0.51-0.95); POTASSIUM 5.3 mmol/L (3.5-5.1); TOTAL PROTEIN 5.9 g/dL (6.4-8.2)
== END 2021-06-08 06:09 | disposition home or self-care (01) ==
LOC: FER 01:24
PROVIDERS: Emergency Medicine Emergency Medical Services
DX: G40.909 Epilepsy, unspecified, not intractable, without status epilepticus (principal); I13.0 Hypertensive heart and chronic kidney disease with heart failure and stage 1 through stage 4 chronic kidney disease, or unspecified chronic kidney disease; E10.22 Type 1 diabetes mellitus with diabetic chronic kidney disease; N18.9 Chronic kidney disease, unspecified; I50.9 Heart failure, unspecified; Z79.899 Other long term (current) drug therapy
CPT/HCPCS: 36415; 80053; 82009; 82550; 83605; 84703; 85025; 99284

== ENCOUNTER 2021-06-10 15:34 | Emergency (ER) | payer OTHER ==
[2021-06-10 17:12] LABS: EOSINOPHIL 0.7 % (0-5); HCT 30.9 % (37.0-47.0); HGB 9.8 g/dl (12.5-16.0); LYMPHOCYTE 10.1 % (15-48); MCH 28.2 pg (25.0-31.0); MCHC 31.7 g/dL (32.0-36.0); MCV 88.8 fL (78.0-100.0); MONOCYTE 3.3 % (0-12); MPV 9.8 fL (6.0-9.5); NEUTROPHIL 84.5 % (41-80); NRBC 0; PLT 331 K/uL (150-400); RBC 3.48 M/uL (4.20-5.40); RDW 16.5 % (11.5-14.0)
[2021-06-10 17:31] LABS: BUN/CREAT RATIO (CALC) 22.8 RATIO; CREATININE 1.97 mg/dL (0.51-0.95)
[2021-06-10 17:32] LABS: POTASSIUM 5.6 mmol/L (3.5-5.1)
[2021-06-10] MEDS ORDERED: PHENERGAN25 M1 PO (20:14)
== END 2021-06-10 20:43 | disposition home or self-care (01) ==
LOC: FER 15:34
PROVIDERS: Nurse Practitioner Family
DX: R11.2 Nausea with vomiting, unspecified (principal); R19.7 Diarrhea, unspecified; E10.9 Type 1 diabetes mellitus without complications; I11.0 Hypertensive heart disease with heart failure; I50.9 Heart failure, unspecified; Z90.49 Acquired absence of other specified parts of digestive tract
CPT/HCPCS: 36415; 80048; 84132; 85025; 93005; J2270; J2550; J7030

== ENCOUNTER 2021-06-16 21:52 | Day surgery (SDCO) | payer OTHER ==
[~2021-06-16 21:52] MED LIST changes: +PHENERGAN25 M1 PO
[2021-06-17 00:09] LABS: EOSINOPHIL 3.3 % (0-5); HCT 28.9 % (37.0-47.0); HGB 9.7 g/dl (12.5-16.0); LYMPHOCYTE 16.2 % (15-48); MCH 28.6 pg (25.0-31.0); MCHC 33.6 g/dL (32.0-36.0); MCV 85.3 fL (78.0-100.0); MONOCYTE 5.3 % (0-12); MPV 9.8 fL (6.0-9.5); NEUTROPHIL 73.8 % (41-80); NRBC 0; PLT 262 K/uL (150-400); RBC 3.39 M/uL (4.20-5.40); RDW 15.3 % (11.5-14.0); WBC 7.8 K/uL (4.0-10.5)
[2021-06-17 00:13] LABS: BILIRUBIN NEGATIVE (NEGATIVE); BLOOD 2+ Ery/uL (NEGATIVE); CLARITY CLEAR (CLEAR); COLOR YELLOW (YELLOW); GLUCOSE (U) NORMAL (NORMAL); LEUKOCYTES NEGATIVE Leu/uL (NEGATIVE); NITRITE NEGATIVE (NEGATIVE); PROTEIN 3+ mg/dL (NEGATIVE); UROBILINOGEN 0.2 mg/dL (0.2-1.0); pH 5.5 (5.0-9.0)
[2021-06-17 00:13] LABS: INR 1.02 (0.9-1.2); PROTHROMBIN TIME 12.8 SECONDS (11.8-13.4)
[2021-06-17 00:33] LABS: BACTERIA 1+
[2021-06-17 00:34] LABS: AMORPHOUS URATES CRYSTALS MODERATE; MUCOUS TRACE
[2021-06-17 00:43] LABS: ALBUMIN 2.7 g/dL (3.4-5.0); BILIRUBIN - TOTAL 0.3 mg/dL (0.2-1.0); BUN/CREAT RATIO (CALC) 18.8 RATIO; CREATININE 1.92 mg/dL (0.51-0.95); GLOBULIN (CALCULATION) 4.2 g/dL; POTASSIUM 4.3 mmol/L (3.5-5.1); TOTAL PROTEIN 6.9 g/dL (6.4-8.2)
[2021-06-17 01:01] LABS: PRO-BNP 17203 pg/mL (<125)
[2021-06-17] MEDS ORDERED: BUSPAR5 MG PO (10:49)
[2021-06-17] MEDS ORDERED: NEURONTIN100 MG PO (10:50)
[2021-06-17] MEDS ORDERED: CYMBALTA60 MG PO (10:50)
[2021-06-17] MEDS ORDERED: TORSEMIDE20 MG PO (10:51)
[2021-06-17] MEDS ORDERED: REQUIP1 MG PO (10:51)
[2021-06-17] MEDS ORDERED: COREG25 MG PO (10:52)
[2021-06-17] MEDS ORDERED: CLONIDINE HCL0.2 MG PO (10:52)
[2021-06-17] MEDS ORDERED: PRINIVIL10 MG PO (10:52)
[2021-06-17] MEDS ORDERED: FOLIC ACID1 MG PO (10:53)
[2021-06-17] MEDS ORDERED: VITAMIN B-121000 MC1 PO (10:53)
[2021-06-17] MEDS ORDERED: BASAGLAR K100 UNIT/1 SC (10:54)
[2021-06-17] MEDS ORDERED: ADMELOG100 UNIT/1 SC (10:55)
[2021-06-17 20:42] LABS: CREATININE 1.94 mg/dL (0.51-0.95)
[2021-06-18 06:02] LABS: BASOPHIL 0.8 % (0-2); EOSINOPHIL 2.8 % (0-5); HCT 29.5 % (37.0-47.0); HGB 9.9 g/dl (12.5-16.0); LYMPHOCYTE 16.9 % (15-48); MCH 28.4 pg (25.0-31.0); MCHC 33.6 g/dL (32.0-36.0); MCV 84.5 fL (78.0-100.0); MONOCYTE 5.2 % (0-12); MPV 9.6 fL (6.0-9.5); NRBC 0; PLT 211 K/uL (150-400); RBC 3.49 M/uL (4.20-5.40); RDW 15.3 % (11.5-14.0); WBC 6.3 K/uL (4.0-10.5)
[2021-06-18 06:15] LABS: IRON % SATURATION 20.1 %SAT (20-50)
[2021-06-18 06:23] LABS: PRO-BNP 16502 pg/mL (<125)
[2021-06-18 06:43] LABS: ALBUMIN 2.1 g/dL (3.4-5.0); BILIRUBIN - TOTAL 0.3 mg/dL (0.2-1.0); BUN/CREAT RATIO (CALC) 19.9 RATIO; CREATININE 1.91 mg/dL (0.51-0.95); GLOBULIN (CALCULATION) 3.8 g/dL; MAGNESIUM 1.8 mg/dL (1.8-2.4); POTASSIUM 4.9 mmol/L (3.5-5.1); TOTAL PROTEIN 5.9 g/dL (6.4-8.2)
--- NOTE | 2021-06-18 14:56 | NUR ---
NEW ORDER TO SET UP OUTPATIENT LEXISCAN/CARDIOLITE STRESS TEST, PATIENT HAS [employer] INSURANCE, FOR THAT REASON SHE WILL NEED SET UP FOR STRESS TEST BY THE FREIGHT ELEVATOR ERECTOR, OR HER PCP. CALL PLACED TO [facility] TO INFORM. TST WILL BE SET UP AT PATIENTS FOLLOWUP. FOLLOW UP APPOINTMENT MADE WITH SHAKA CHATMAN APRN FOR 07/24/2021 AT 2:40PM.
[2021-06-19 06:57] LABS: BASOPHIL 0.7 % (0-2); EOSINOPHIL 3.3 % (0-5); HCT 26.5 % (37.0-47.0); HGB 8.6 g/dl (12.5-16.0); MCHC 32.5 g/dL (32.0-36.0); MCV 86.3 fL (78.0-100.0); MONOCYTE 6.3 % (0-12); MPV 9.5 fL (6.0-9.5); NEUTROPHIL 72.4 % (41-80); NRBC 0; PLT 165 K/uL (150-400); RBC 3.07 M/uL (4.20-5.40); RDW 15.4 % (11.5-14.0); WBC 5.7 K/uL (4.0-10.5)
[2021-06-19 07:26] LABS: BUN/CREAT RATIO (CALC) 17.5 RATIO; CREATININE 2.28 mg/dL (0.51-0.95); POTASSIUM 5.5 mmol/L (3.5-5.1)
[2021-06-19] MEDS ORDERED: ZESTRIL40 MG PO (10:23)
[2021-06-19] MEDS ORDERED: LASIX40 MG PO (10:23)
== END 2021-06-19 11:07 | disposition home or self-care (01) ==
LOC: FER 21:52 → FMS 06-17 08:28 → FER 06-17 10:30 → FMS 06-19 11:07
PROVIDERS: Emergency Medicine; Internal Medicine; ADMIT Internal Medicine
DX: I13.0 Hypertensive heart and chronic kidney disease with heart failure and stage 1 through stage 4 chronic kidney disease, or unspecified chronic kidney disease (principal); I50.33 Acute on chronic diastolic (congestive) heart failure; Z90.49 Acquired absence of other specified parts of digestive tract; Z98.51 Tubal ligation status; Z98.84 Bariatric surgery status; E10.42 Type 1 diabetes mellitus with diabetic polyneuropathy; Z79.4 Long term (current) use of insulin; Z20.822 Contact with and (suspected) exposure to COVID-19; N30.00 Acute cystitis without hematuria; A41.9 Sepsis, unspecified organism; E78.2 Mixed hyperlipidemia; E10.22 Type 1 diabetes mellitus with diabetic chronic kidney disease; N18.4 Chronic kidney disease, stage 4 (severe); K59.00 Constipation, unspecified
CPT/HCPCS: 36415; 71045; 71046; 80048; 80053; 81001; 82550; 82607; 82962; 83540; 83550; 83690; 83735; 83880; 84145; 84484; 85025; 85610; 93005; G0378; J0360; J1815; J1885; U0002

== ENCOUNTER 2021-06-23 22:00 | Inpatient (IN) | payer OTHER ==
[~2021-06-23] VITALS: Ht 160 cm; Wt 88.6 kg
[~2021-06-23 22:00] MED LIST changes: +ADMELOG100 UNIT/1 SC; +BUSPAR5 MG PO; +CLONIDINE HCL0.2 MG PO; +COREG25 MG PO; +CYMBALTA60 MG PO; +FOLIC ACID1 MG PO; +LASIX40 MG PO; +NEURONTIN100 MG PO; +PRINIVIL10 MG PO; +TORSEMIDE20 MG PO; +VITAMIN B-121000 MC1 PO; +ZESTRIL40 MG PO
[2021-06-23 22:26] LABS: EOSINOPHIL 1.2 % (0-5); HCT 26.5 % (37.0-47.0); HGB 8.8 g/dl (12.5-16.0); LYMPHOCYTE 11.3 % (15-48); MCH 28.5 pg (25.0-31.0); MCHC 33.2 g/dL (32.0-36.0); MCV 85.8 fL (78.0-100.0); MONOCYTE 5.5 % (0-12); MPV 11.2 fL (6.0-9.5); NEUTROPHIL 80.8 % (41-80); NRBC 0; PLT 184 K/uL (150-400); RBC 3.09 M/uL (4.20-5.40); RDW 14.1 % (11.5-14.0); WBC 4.9 K/uL (4.0-10.5)
[2021-06-23 22:45] LABS: ALBUMIN 2.4 g/dL (3.4-5.0); BILIRUBIN - TOTAL 0.5 mg/dL (0.2-1.0); BUN/CREAT RATIO (CALC) 28.9 RATIO; CREATININE 2.25 mg/dL (0.51-0.95); GLOBULIN (CALCULATION) 4.4 g/dL; TOTAL PROTEIN 6.8 g/dL (6.4-8.2)
[2021-06-23 22:48] LABS: POTASSIUM 7.1 mmol/L (3.5-5.1)
[2021-06-23 22:53] LABS: PRO-BNP 14007 pg/mL (<125)
[2021-06-23 23:23] LABS: BUN/CREAT RATIO (CALC) 28.9 RATIO; CREATININE 2.25 mg/dL (0.51-0.95)
[2021-06-23 23:26] LABS: POTASSIUM 7.3 mmol/L (3.5-5.1)
[2021-06-24 03:39] LABS: BILIRUBIN NEGATIVE (NEGATIVE); BLOOD 1+ Ery/uL (NEGATIVE); CLARITY CLEAR (CLEAR); COLOR YELLOW (YELLOW); GLUCOSE (U) 3+ mg/dL (NORMAL); LEUKOCYTES NEGATIVE Leu/uL (NEGATIVE); NITRITE NEGATIVE (NEGATIVE); PROTEIN 2+ mg/dL (NEGATIVE); SPECIFIC GRAVITY 1.015 (1.001-1.030); UROBILINOGEN 0.2 mg/dL (0.2-1.0); pH 5.5 (5.0-9.0)
[2021-06-24 03:43] LABS: AMPHETAMINES NEGATIVE (NEGATIVE); BARBITURATES NEGATIVE (NEGATIVE); ECSTASY (MDMA) NEGATIVE (NEGATIVE); MARIJUANA (THC) NEGATIVE (NEGATIVE); METHADONE NEGATIVE (NEGATIVE); OPIATES NEGATIVE (NEGATIVE); OXYCODONE POSITIVE (NEGATIVE)
[2021-06-24 03:45] LABS: BACTERIA 1+
[2021-06-24 06:32] LABS: BASOPHIL 1.1 % (0-2); EOSINOPHIL 1.8 % (0-5); HCT 25.2 % (37.0-47.0); HGB 8.6 g/dl (12.5-16.0); LYMPHOCYTE 17.7 % (15-48); MCH 29.1 pg (25.0-31.0); MCHC 34.1 g/dL (32.0-36.0); MCV 85.1 fL (78.0-100.0); MONOCYTE 9.2 % (0-12); MPV 10.5 fL (6.0-9.5); NRBC 0; PLT 186 K/uL (150-400); RBC 2.96 M/uL (4.20-5.40); RDW 14.1 % (11.5-14.0); WBC 4.5 K/uL (4.0-10.5)
[2021-06-24 07:05] LABS: ALBUMIN 2.3 g/dL (3.4-5.0); BILIRUBIN - TOTAL 0.3 mg/dL (0.2-1.0); BUN/CREAT RATIO (CALC) 27.2 RATIO; CREATININE 2.24 mg/dL (0.51-0.95); GLOBULIN (CALCULATION) 3.1 g/dL; MAGNESIUM 1.9 mg/dL (1.8-2.4); PHOSPHORUS 4.8 mg/dL (2.6-4.7); POTASSIUM 4.6 mmol/L (3.5-5.1); TOTAL PROTEIN 5.4 g/dL (6.4-8.2)
[2021-06-24] MEDS ORDERED: HYDRALAZINE25 MG PO (08:01)
[2021-06-24 14:30] LABS: BASOPHIL 1.2 % (0-2); EOSINOPHIL 2.4 % (0-5); HCT 24.1 % (37.0-47.0); HGB 8.2 g/dl (12.5-16.0); LYMPHOCYTE 14.2 % (15-48); MCH 28.9 pg (25.0-31.0); MCV 84.9 fL (78.0-100.0); MONOCYTE 5.3 % (0-12); MPV 10.2 fL (6.0-9.5); NEUTROPHIL 76.5 % (41-80); NRBC 0; PLT 197 K/uL (150-400); RBC 2.84 M/uL (4.20-5.40); RDW 14.2 % (11.5-14.0); WBC 5.1 K/uL (4.0-10.5)
[2021-06-24 15:03] LABS: ALBUMIN 2.1 g/dL (3.4-5.0); BILIRUBIN - TOTAL 0.2 mg/dL (0.2-1.0); BUN/CREAT RATIO (CALC) 23.5 RATIO; CREATININE 2.55 mg/dL (0.51-0.95); GLOBULIN (CALCULATION) 3.2 g/dL; POTASSIUM 5.3 mmol/L (3.5-5.1); TOTAL PROTEIN 5.3 g/dL (6.4-8.2)
--- NOTE | 2021-06-24 15:20 | NUR ---
1341 boyfriend came out of the and said she wasnt breathing, went in and checked her pulse with was strong, but wasnt breathing, code called.pt aroused with sternal rubbing,still very lethergic, 0.4mg narcan iv push ordered by dr arriaza. pt awaken when narcan was given, like nothing ever happened. pt was placed on nonrebreather which brought sats to 100%, then placed on 4lnc.
[2021-06-25 07:53] LABS: EOSINOPHIL 2.5 % (0-5); HCT 25.3 % (37.0-47.0); HGB 8.4 g/dl (12.5-16.0); LYMPHOCYTE 16.6 % (15-48); MCH 28.6 pg (25.0-31.0); MCHC 33.2 g/dL (32.0-36.0); MCV 86.1 fL (78.0-100.0); MONOCYTE 6.1 % (0-12); MPV 9.8 fL (6.0-9.5); NEUTROPHIL 73.4 % (41-80); NRBC 0; PLT 192 K/uL (150-400); RBC 2.94 M/uL (4.20-5.40); RDW 14.6 % (11.5-14.0); WBC 4.9 K/uL (4.0-10.5)
[2021-06-25 08:16] LABS: ALBUMIN 2.1 g/dL (3.4-5.0); BILIRUBIN - TOTAL 0.5 mg/dL (0.2-1.0); BUN/CREAT RATIO (CALC) 25.5 RATIO; CREATININE 2.16 mg/dL (0.51-0.95); GLOBULIN (CALCULATION) 3.9 g/dL; POTASSIUM 5.6 mmol/L (3.5-5.1)
--- NOTE | 2021-06-25 13:27 | NUR ---
PATIENT DISCHARGED VIA WHEELCHAIR. IV AND MONITOR DCD. DISCHARGE INSTRUCTIONS GIVEN TO PATIENT, VERBALIZED UNDERSTANDING.
== END 2021-06-25 13:15 | disposition home or self-care (01) | DRG 637 ==
LOC: FER 22:00 → FICU 06-24 01:28
PROVIDERS: Emergency Medicine; Family Medicine; Nurse Practitioner; ADMIT Internal Medicine
DX: E10.65 Type 1 diabetes mellitus with hyperglycemia (principal); I50.33 Acute on chronic diastolic (congestive) heart failure; N17.9 Acute kidney failure, unspecified; N18.4 Chronic kidney disease, stage 4 (severe); I13.0 Hypertensive heart and chronic kidney disease with heart failure and stage 1 through stage 4 chronic kidney disease, or unspecified chronic kidney disease; Z20.822 Contact with and (suspected) exposure to COVID-19; F31.9 Bipolar disorder, unspecified; F41.9 Anxiety disorder, unspecified; D50.9 Iron deficiency anemia, unspecified; E10.40 Type 1 diabetes mellitus with diabetic neuropathy, unspecified; E78.5 Hyperlipidemia, unspecified; E86.0 Dehydration; Z91.14 Patient's other noncompliance with medication regimen; Z79.899 Other long term (current) drug therapy; Z90.49 Acquired absence of other specified parts of digestive tract; Z98.84 Bariatric surgery status; Z98.51 Tubal ligation status; Z98.890 Other specified postprocedural states
CPT/HCPCS: 36415; 36600; 71045; 80048; 80053; 80305; 81001; 82009; 82803; 82947; 82962; 83605; 83735; 83880; 84100; 84132; 84484; 85025; 87088; 94010; C9113; J0171; J0610; J1650; J1815; J2310; J7030; U0002

== ENCOUNTER 2021-08-13 10:24 | Emergency (ER) | payer OTHER ==
[2021-08-13 12:09] LABS: CORONAVIRUS 2019 SARS-COV-2 NEGATIVE (NEGATIVE); INFLUENZA A NAA NEGATIVE (NEGATIVE)
[2021-08-13] MEDS ORDERED: ONDANSETRON ODT4 MG PO (12:43)
== END 2021-08-13 15:25 | disposition home or self-care (01) ==
LOC: FER 10:24
PROVIDERS: Emergency Medicine
DX: U07.1 COVID-19 (principal); Z23 Encounter for immunization
CPT/HCPCS: M0245; Q0245; U0002

== ENCOUNTER 2021-10-02 09:09 | Emergency (ER) | payer OTHER ==
[~2021-10-02 09:09] MED LIST changes: +ONDANSETRON ODT4 MG PO
[2021-10-02 10:21] LABS: BASOPHIL 0.5 % (0-2); EOSINOPHIL 0.5 % (0-5); HCT 27.3 % (37.0-47.0); HGB 9.8 g/dl (12.5-16.0); LYMPHOCYTE 15.1 % (15-48); MCH 28.7 pg (25.0-31.0); MCHC 35.9 g/dL (32.0-36.0); MCV 79.8 fL (78.0-100.0); MONOCYTE 7.2 % (0-12); NEUTROPHIL 76.2 % (41-80); NRBC 0; PLT 151 K/uL (150-400); RBC 3.42 M/uL (4.20-5.40); RDW 13.2 % (11.5-14.0); WBC 3.9 K/uL (4.0-10.5)
[2021-10-02 10:45] LABS: ALBUMIN 2.6 g/dL (3.4-5.0); BILIRUBIN - TOTAL 0.3 mg/dL (0.2-1.0); BUN/CREAT RATIO (CALC) 15.9 RATIO; CREATININE 2.96 mg/dL (0.51-0.95); GLOBULIN (CALCULATION) 4.4 g/dL; POTASSIUM 3.9 mmol/L (3.5-5.1)
[2021-10-02] MEDS ORDERED: PHENERGAN25 M1 PO (11:14)
== END 2021-10-02 11:40 | disposition home or self-care (01) ==
LOC: FER 09:09
PROVIDERS: Emergency Medicine
DX: E11.65 Type 2 diabetes mellitus with hyperglycemia (principal)
CPT/HCPCS: 36415; 80053; 85025; J2405; J2765; J7030

== ENCOUNTER 2021-10-08 16:04 | Emergency (ER) | payer OTHER ==
[2021-10-08 17:07] LABS: BASOPHIL 0.7 % (0-2); HCT 26.9 % (37.0-47.0); HGB 9.6 g/dl (12.5-16.0); MCH 28.6 pg (25.0-31.0); MCHC 35.7 g/dL (32.0-36.0); MCV 80.1 fL (78.0-100.0); MONOCYTE 3.8 % (0-12); MPV 9.8 fL (6.0-9.5); NEUTROPHIL 80.1 % (41-80); NRBC 0; PLT 313 K/uL (150-400); RBC 3.36 M/uL (4.20-5.40); RDW 13.1 % (11.5-14.0); WBC 7.1 K/uL (4.0-10.5)
[2021-10-08 17:30] LABS: CORONAVIRUS 2019 SARS-COV-2 POSITIVE (NEGATIVE); INFLUENZA A NAA NEGATIVE (NEGATIVE)
[2021-10-08 17:33] LABS: ALBUMIN 2.6 g/dL (3.4-5.0); BILIRUBIN - TOTAL 0.3 mg/dL (0.2-1.0); BUN/CREAT RATIO (CALC) 16.5 RATIO; CREATININE 2.3 mg/dL (0.51-0.95); GLOBULIN (CALCULATION) 4.2 g/dL; POTASSIUM 4.7 mmol/L (3.5-5.1); TOTAL PROTEIN 6.8 g/dL (6.4-8.2)
[2021-10-08 17:59] LABS: BILIRUBIN NEGATIVE (NEGATIVE); BLOOD 3+ Ery/uL (NEGATIVE); COLOR YELLOW (YELLOW); GLUCOSE (U) 3+ mg/dL (NORMAL); LEUKOCYTES NEGATIVE Leu/uL (NEGATIVE); NITRITE NEGATIVE (NEGATIVE); PROTEIN 2+ mg/dL (NEGATIVE); UROBILINOGEN 0.2 mg/dL (0.2-1.0)
[2021-10-08 18:06] LABS: BACTERIA 4+; CLARITY HAZY (CLEAR)
[2021-10-08] MEDS ORDERED: METRONIDAZOLE500 MG PO (21:43)
[2021-10-08] MEDS ORDERED: MACROBID 100 M100 MG PO (21:43)
== END 2021-10-08 21:57 | disposition home or self-care (01) ==
LOC: FER 16:04
PROVIDERS: Physician Assistant
DX: E10.65 Type 1 diabetes mellitus with hyperglycemia (principal); E10.22 Type 1 diabetes mellitus with diabetic chronic kidney disease; I12.9 Hypertensive chronic kidney disease with stage 1 through stage 4 chronic kidney disease, or unspecified chronic kidney disease; N18.9 Chronic kidney disease, unspecified; U07.1 COVID-19; A59.9 Trichomoniasis, unspecified; Z98.84 Bariatric surgery status; Z98.890 Other specified postprocedural states
CPT/HCPCS: 36415; 36600; 71045; 80053; 81001; 82009; 82803; 85025; J2405; J7030; U0002

== ENCOUNTER 2021-12-16 01:29 | Emergency (ER) | payer OTHER ==
[~2021-12-16 01:29] MED LIST changes: +CEPHALEXIN500 MG PO; +MACROBID 100 M100 MG PO; +METRONIDAZOLE500 MG PO
[2021-12-16 03:10] LABS: BUN/CREAT RATIO (CALC) 19.4 RATIO; CREATININE 3.87 mg/dL (0.51-0.95); POTASSIUM 5.1 mmol/L (3.5-5.1)
[2021-12-16 03:28] LABS: BASOPHIL 0.9 % (0-2); EOSINOPHIL 3.7 % (0-5); HCT 23.5 % (37.0-47.0); HGB 8.4 g/dl (12.5-16.0); LYMPHOCYTE 18.6 % (15-48); MCH 29.6 pg (25.0-31.0); MCHC 35.7 g/dL (32.0-36.0); MCV 82.7 fL (78.0-100.0); MONOCYTE 5.2 % (0-12); MPV 10.4 fL (6.0-9.5); NEUTROPHIL 71.1 % (41-80); NRBC 0; PLT 224 K/uL (150-400); RBC 2.84 M/uL (4.20-5.40); RDW 12.2 % (11.5-14.0); WBC 7.5 K/uL (4.0-10.5)
[2021-12-16] MEDS ORDERED: PERCOCET 5-3251 EACH PO (06:30)
== END 2021-12-16 06:45 | disposition home or self-care (01) ==
LOC: FER 01:29
PROVIDERS: Internal Medicine
DX: T82.848A Pain due to vascular prosthetic devices, implants and grafts, initial encounter (principal); E11.22 Type 2 diabetes mellitus with diabetic chronic kidney disease; N18.6 End stage renal disease; D63.1 Anemia in chronic kidney disease; E11.40 Type 2 diabetes mellitus with diabetic neuropathy, unspecified; Z79.4 Long term (current) use of insulin; Z79.84 Long term (current) use of oral hypoglycemic drugs; Z79.899 Other long term (current) drug therapy; Y83.2 Surgical operation with anastomosis, bypass or graft as the cause of abnormal reaction of the patient, or of later complication, without mention of misadventure at the time of the procedure
CPT/HCPCS: 36415; 73200; 80048; 84145; 85025

== ENCOUNTER 2022-02-16 11:15 | Emergency (ER) | payer OTHER ==
[2022-02-16 12:16] LABS: BASOPHIL 1.1 % (0-2); EOSINOPHIL 4.4 % (0-5); HGB 8.8 g/dl (12.5-16.0); LYMPHOCYTE 9.8 % (15-48); MCH 28.6 pg (25.0-31.0); MCHC 33.8 g/dL (32.0-36.0); MCV 84.4 fL (78.0-100.0); MPV 10.3 fL (6.0-9.5); NEUTROPHIL 81.2 % (41-80); NRBC 0; PLT 252 K/uL (150-400); RBC 3.08 M/uL (4.20-5.40); WBC 10.2 K/uL (4.0-10.5)
[2022-02-16 12:31] LABS: ALBUMIN 2.7 g/dL (3.4-5.0); BILIRUBIN - TOTAL 0.2 mg/dL (0.2-1.0); BUN/CREAT RATIO (CALC) 18.3 RATIO; CREATININE 3.55 mg/dL (0.51-0.95); GLOBULIN (CALCULATION) 3.7 g/dL; PHOSPHORUS 5.7 mg/dL (2.6-4.7); POTASSIUM 5.4 mmol/L (3.5-5.1); TOTAL PROTEIN 6.4 g/dL (6.4-8.2)
== END 2022-02-16 15:33 | disposition home or self-care (01) ==
LOC: FER 11:15
PROVIDERS: Emergency Medicine
DX: E11.22 Type 2 diabetes mellitus with diabetic chronic kidney disease (principal); N18.6 End stage renal disease; E87.5 Hyperkalemia; E83.39 Other disorders of phosphorus metabolism; R53.1 Weakness; Z99.2 Dependence on renal dialysis
CPT/HCPCS: 36415; 36600; 71045; 80053; 82803; 83735; 84100; 84145; 85025; 93005

== ENCOUNTER 2022-04-26 05:47 | Emergency (ER) | payer OTHER ==
[2022-04-26 06:57] LABS: CORONAVIRUS 2019 SARS-COV-2 NEGATIVE (NEGATIVE); INFLUENZA A NAA NEGATIVE (NEGATIVE)
[2022-04-26 08:16] LABS: BASOPHIL 0.8 % (0-2); EOSINOPHIL 4.8 % (0-5); HCT 28.7 % (37.0-47.0); HGB 9.7 g/dl (12.5-16.0); LYMPHOCYTE 9.8 % (15-48); MCH 28.6 pg (25.0-31.0); MCHC 33.8 g/dL (32.0-36.0); MCV 84.7 fL (78.0-100.0); MONOCYTE 4.1 % (0-12); MPV 10.5 fL (6.0-9.5); NEUTROPHIL 80.1 % (41-80); NRBC 0; PLT 241 K/uL (150-400); RBC 3.39 M/uL (4.20-5.40); RDW 14.4 % (11.5-14.0); WBC 9.2 K/uL (4.0-10.5)
[2022-04-26 08:27] LABS: INR 0.93 (0.9-1.2); PROTHROMBIN TIME 12.2 SECONDS (11.9-13.9)
[2022-04-26 08:48] LABS: ALBUMIN 2.5 g/dL (3.4-5.0); BILIRUBIN - TOTAL 0.4 mg/dL (0.2-1.0); BUN/CREAT RATIO (CALC) 12.1 RATIO; CREATININE 4.05 mg/dL (0.51-0.95); GLOBULIN (CALCULATION) 3.6 g/dL; POTASSIUM 4.3 mmol/L (3.5-5.1); TOTAL PROTEIN 6.1 g/dL (6.4-8.2)
== END 2022-04-26 10:09 | disposition other institution (70) ==
LOC: FER 05:47
PROVIDERS: Emergency Medicine
DX: E10.22 Type 1 diabetes mellitus with diabetic chronic kidney disease (principal); N18.4 Chronic kidney disease, stage 4 (severe); R04.0 Epistaxis; Z99.2 Dependence on renal dialysis; Z79.4 Long term (current) use of insulin; Z20.822 Contact with and (suspected) exposure to COVID-19
CPT/HCPCS: 36415; 80053; 85025; 85610; J2270; U0002